=== PATIENT | female | born 1930 | race Caucasian/White ===

== ENCOUNTER 2018-08-27 13:50 | Observation (INO) ==
[2018-08-27 15:13] LABS: Basophils % 0.7 % (0.0-0.8); Eosinophils # 0.3 10*3/uL (0.0-0.87); Eosinophils % 4.3 % (0.00-10.9); Hemoglobin 11.5 GM/DL (12.0-16.0); Immature Granulocytes % 1.2 %; Immature Granulocytes Absolute 0.07 #; Lymphocytes # 1.5 10*3/uL (1.4-4.0); Lymphocytes % 24.5 % (21.3-54.2); Mean Corpuscular HGB Conc 32.9 GM/DL (32-36); Mean Corpuscular Hemoglobin 27 PG (27-34); Mean Corpuscular Volume 83.1 FL (87-102); Mean Platelet Volume 10.9 FL (9.6-12.0); Monocytes # 0.7 10*3/uL (0.11-0.8); Monocytes % 12.3 % (1.7-12.7); Neutrophils # 3.4 10*3/uL (1.4-7.4); Platelet Count 240 T/CUMM (130-400); Red Blood Count 4.21 MC/CUMM (3.8-5.5); Red Cell Distribution Width 13.2 % (9.3-17.3)
[2018-08-27 15:25] LABS: PT Patient Result 10.9 SECS; Partial Thromboplastin Time 28.9 SECS (0-40)
[2018-08-27 15:30] LABS: Alanine Aminotransferase 32 U/L (13-56); Albumin 3.4 G/DL (3.4-5.0); Alkaline Phosphatase 75 U/L (45-117); Aspartate Amino Transferase 42 U/L (0-37); Blood Urea Nitrogen 4 MG/DL (7-18); Calcium 8.8 MG/DL (8.5-10.1); Glucose 98 MG/DL (74-106); Osmolality,Calculated 271.7 MOS/KG (273-304); Sodium 138 MMOL/L (136-145); Troponin I < 0.015 NG/ML (0.00-0.045)
[2018-08-27] MEDS ORDERED: POTASSIUM CHLORIDE 20 MEQ TABLET PO STA (16:25)
[2018-08-27 17:08] LABS: Apearance,Urine CLEAR (Clear); Bilirubin,Urine Negative (Negative); Blood, Urine Negative (Negative); Glucose,Urine (UA) Negative (Negative); Ketones,Urine Negative (Negative); Nitrite,Urine Negative (Negative); Protein,Urine Negative; RBC,Urine 3 /HPF (0-4); Urine Color Yellow (Yellow); Urine Specific Gravity 1.005 (1.001-1.035); Urine Urobilinogen < 2.0 EU/DL (0.2-1.0); WBC,Urine 17 /HPF (0-6)
[2018-08-27] MEDS ORDERED: cefTRIAXone 1,000 MG in SODIUM CHLORIDE 0.9% 100 ML IV STA (17:11)
[2018-08-27] MEDS ORDERED: LEVOFLOXACIN 500 MG TABLET PO STA (17:22)
[2018-08-27] MEDS ORDERED: ONDANSETRON 4 MG/2 ML VIAL IV PRN (17:44)
[2018-08-27] MEDS ORDERED: ACETAMINOPHEN 325 MG TABLET PO PRN (17:44)
[2018-08-27] MEDS: SODIUM CHLORIDE 0.9% 1,000 ML IV SCH ×2 (18:29→21:17)
[2018-08-27] MEDS ORDERED: LEVOFLOXACIN INJ 500 MG in PREMIX 1 EACH IV SCH (18:30)
[2018-08-27] MEDS ORDERED: ASPIRIN 325 MG TABLET PO STA (18:36)
[2018-08-27 18:48] LABS: Risk Ratio 6.06; Thyroid Stimulating Hormone 3.76 uIU/ml (0.358-3.74); VLDL CHOLESTEROL 41.4 MG/DL
[2018-08-27] MEDS ORDERED: DICLOFENAC 1% GEL 100 GM TUBE TOP PRN (19:13)
[2018-08-27 19:17] LABS: Band Neutrophils 1 % (0-10); Eosinophils 5 % (0-10); Lymphocytes 24 % (20-55); Myelocytes 1 %; Segmented Neutrophils 62 % (50-85); Total Cells Counted 100
[2018-08-27 19:18] LABS: Anisocytosis Slight; Hypochromasia 1+; Microcytosis 1+
[2018-08-27 19:19] LABS: Ovalocytes Slight
[2018-08-27 19:20] LABS: Platelet Estimate Normal
[2018-08-27] MEDS ORDERED: DENOSUMAB 60 MG/ML SYRINGE SUBCUT SCH (19:30)
[2018-08-27] MEDS ORDERED: ZALEPLON 5 MG CAPSULE PO SCH (21:00)
[2018-08-27] MEDS ORDERED: MIRTAZAPINE 15 MG TABLET PO SCH (21:00)
[2018-08-27] MEDS: PROPRANOLOL 20 MG TABLET PO SCH (21:14)
[2018-08-27] MEDS: risperiDONE 0.5 MG TABLET PO SCH (21:14)
[2018-08-27] MEDS: clonazePAM 0.5 MG TABLET PO SCH (21:15)
[2018-08-27] MEDS: OXYBUTYNIN 5 MG TABLET PO SCH (21:15)
[2018-08-28 04:44] LABS: Basophils % 0.4 % (0.0-0.8); Eosinophils # 0.2 10*3/uL (0.0-0.87); Eosinophils % 4.2 % (0.00-10.9); Hematocrit 31.7 VOL% (35.7-47.0); Hemoglobin 10.4 GM/DL (12.0-16.0); Immature Granulocytes % 1.3 %; Immature Granulocytes Absolute 0.06 #; Lymphocytes # 1.6 10*3/uL (1.4-4.0); Lymphocytes % 33.8 % (21.3-54.2); Mean Corpuscular HGB Conc 32.8 GM/DL (32-36); Mean Corpuscular Hemoglobin 27 PG (27-34); Mean Corpuscular Volume 83.6 FL (87-102); Mean Platelet Volume 11.2 FL (9.6-12.0); Monocytes # 0.6 10*3/uL (0.11-0.8); Monocytes % 13.3 % (1.7-12.7); Neutrophils # 2.2 10*3/uL (1.4-7.4); Platelet Count 208 T/CUMM (130-400); Red Blood Count 3.79 MC/CUMM (3.8-5.5); Red Cell Distribution Width 13.2 % (9.3-17.3); White Blood Count 4.7 T/CUMM (4-12)
[2018-08-28 05:19] LABS: Albumin 2.9 G/DL (3.4-5.0); Bilirubin,Total 0.5 MG/DL (0.2-1.0); Calcium 7.9 MG/DL (8.5-10.1); Osmolality,Calculated 278.1 MOS/KG (273-304); Potassium 3.1 MMOL/L (3.5-5.1); Total Protein 6.1 G/DL (6.4-8.3)
[2018-08-28 05:30] LABS: Eosinophils 1 % (0-10); Hypochromasia 1+; Lymphocytes 42 % (20-55); Microcytosis 1+; Platelet Estimate Adequate; Segmented Neutrophils 54 % (50-85); Total Cells Counted 100
[2018-08-28] MEDS: SODIUM CHLORIDE 0.9% 1,000 ML IV SCH (06:04)
[2018-08-28] MEDS ORDERED: LEVOTHYROXINE 75 MCG TABLET PO SCH (06:30)
[2018-08-28] MEDS ORDERED: buPROPion 100 MG TABLET PO SCH (08:00)
[2018-08-28] MEDS: PROPRANOLOL 20 MG TABLET PO SCH (08:35)
[2018-08-28] MEDS: risperiDONE 0.5 MG TABLET PO SCH (08:35)
[2018-08-28] MEDS: clonazePAM 0.5 MG TABLET PO SCH (08:35)
[2018-08-28] MEDS: OXYBUTYNIN 5 MG TABLET PO SCH (08:37)
[2018-08-28] MEDS ORDERED: PANTOPRAZOLE 40 MG TABLET PO SCH (09:00)
[2018-08-28] MEDS ORDERED: SERTRALINE 100 MG TABLET PO SCH (09:00)
[2018-08-28] MEDS ORDERED: ASPIRIN 325 MG TABLET PO SCH (09:00)
[2018-08-28] MEDS ORDERED: CALCIUM (CARBONATE) 600 MG TABLET PO SCH (09:00)
[2018-08-28] MEDS ORDERED: CYANOCOBALAMIN 500 MCG TABLET PO SCH (09:00)
[2018-08-28] MEDS ORDERED: OMEGA 3 ACID ETHYL ESTERS 1 GM CAPSULE PO SCH (09:00)
[2018-08-28] MEDS ORDERED: CHOLECALCIFEROL 1,000 UNIT TABLET PO SCH (09:00)
[2018-08-28 09:50] VITALS: BP 160/85
[2018-08-28] MEDS ORDERED: cefTRIAXone 1,000 MG in SYRINGE 1 EACH IV SCH (18:00)
[2018-08-28] MEDS ORDERED: DONEPEZIL 10 MG TABLET PO SCH (19:00)
[2018-08-28] MEDS ORDERED: ATORVASTATIN 40 MG TABLET PO SCH (21:00)
== END 2018-08-28 11:30 | disposition home or self-care (01) ==
LOC: N.ED 13:50 → N.EDINP 13:50 → SUATTDRO 17:44 → N.4E 19:18
PROVIDERS: ADMIT Hospitalist; ATTEND Internal Medicine

== ENCOUNTER 2018-10-24 14:54 | Observation (INO) ==
[2018-10-24 16:01] LABS: Basophils % 0.2 % (0.0-0.8); Eosinophils # 0.2 10*3/uL (0.0-0.87); Hematocrit 39.9 VOL% (35.7-47.0); Hemoglobin 13.3 GM/DL (12.0-16.0); Immature Granulocytes % 0.5 %; Immature Granulocytes Absolute 0.04 #; Lymphocytes # 1.5 10*3/uL (1.4-4.0); Lymphocytes % 17.4 % (21.3-54.2); Mean Corpuscular HGB Conc 33.3 GM/DL (32-36); Mean Corpuscular Hemoglobin 27 PG (27-34); Mean Corpuscular Volume 82.3 FL (87-102); Monocytes # 0.7 10*3/uL (0.11-0.8); Monocytes % 8.4 % (1.7-12.7); Neutrophils % 71.5 % (38.7-73.9); Platelet Count 270 T/CUMM (130-400); Red Blood Count 4.85 MC/CUMM (3.8-5.5); Red Cell Distribution Width 13.2 % (9.3-17.3); White Blood Count 8.4 T/CUMM (4-12)
[2018-10-24 16:33] LABS: Albumin 3.9 G/DL (3.4-5.0); Bilirubin,Total 0.9 MG/DL (0.2-1.0); Osmolality,Calculated 258.1 MOS/KG (273-304); Potassium 3.3 MMOL/L (3.5-5.1); Total Protein 7.8 G/DL (6.4-8.3)
[2018-10-24 16:58] LABS: Apearance,Urine CLEAR (Clear); Bacteria,Urine Occasional /HPF (Few); Bilirubin,Urine Negative (Negative); Blood, Urine Small mg/dL (Negative); Glucose,Urine (UA) Negative (Negative); Ketones,Urine 20 mg/dL (Negative); Mucus,Urine Occasional /LPF (Occasional); Nitrite,Urine Negative (Negative); Protein,Urine 30 MG/DL; RBC,Urine 1 /HPF (0-4); Urine Color Yellow (Yellow); Urine Specific Gravity 1.019 (1.001-1.035); Urine Urobilinogen < 2.0 EU/DL (0.2-1.0); WBC,Urine 1 /HPF (0-6)
[2018-10-24] MEDS ORDERED: DICLOFENAC 1% GEL 100 GM TUBE TOP PRN (17:28)
[2018-10-24] MEDS ORDERED: DENOSUMAB 60 MG/ML SYRINGE SUBCUT SCH (17:30)
[2018-10-24] MEDS ORDERED: clonazePAM 0.5 MG TABLET PO PRN (18:09)
[2018-10-24] MEDS ORDERED: ACETAMINOPHEN 325 MG TABLET PO PRN ×2 (18:25→18:31)
[2018-10-24] MEDS ORDERED: ONDANSETRON 4 MG/2 ML VIAL IV PRN ×2 (18:25→18:31)
[2018-10-24] MEDS ORDERED: ENOXAPARIN 40 MG/0.4 ML SYRINGE SUBCUT SCH (18:30)
[2018-10-24] MEDS ORDERED: ENOXAPARIN 30 MG/0.3 ML SYRINGE SUBCUT SCH (18:31)
[2018-10-24] MEDS: SODIUM CHLOR 0.9% KCL 20 MEQ 20 MEQ/1,000 ML BAG IV SCH (19:39)
[2018-10-24] MEDS: ATORVASTATIN 40 MG TABLET PO SCH (20:51)
[2018-10-24] MEDS: LACTOBACILLUS RHAMNOSUS GG CAPSULE PO SCH (20:51)
[2018-10-24] MEDS: DONEPEZIL 10 MG TABLET PO SCH (20:51)
[2018-10-24] MEDS: MIRTAZAPINE 15 MG TABLET PO SCH (20:51)
[2018-10-24] MEDS: PROPRANOLOL 20 MG TABLET PO SCH (20:51)
[2018-10-24] MEDS: OMEGA 3 ACID ETHYL ESTERS 1 GM CAPSULE PO SCH (20:51)
[2018-10-24] MEDS ORDERED: HALOPERIDOL 5 MG/ML AMP IM ONE (22:50)
[2018-10-25] MEDS: LACTOBACILLUS RHAMNOSUS GG CAPSULE PO SCH ×2 (00:36→10:00)
[2018-10-25] MEDS: DONEPEZIL 10 MG TABLET PO SCH (00:36)
[2018-10-25] MEDS: MIRTAZAPINE 15 MG TABLET PO SCH (00:37)
[2018-10-25] MEDS: OMEGA 3 ACID ETHYL ESTERS 1 GM CAPSULE PO SCH ×2 (00:37→10:00)
[2018-10-25] MEDS: ATORVASTATIN 40 MG TABLET PO SCH (00:37)
[2018-10-25] MEDS: PROPRANOLOL 20 MG TABLET PO SCH ×4 (00:37→15:10)
[2018-10-25 04:29] LABS: Basophils % 0.4 % (0.0-0.8); Eosinophils # 0.2 10*3/uL (0.0-0.87); Eosinophils % 2.7 % (0.00-10.9); Hematocrit 36.6 VOL% (35.7-47.0); Hemoglobin 12.2 GM/DL (12.0-16.0); Immature Granulocytes % 0.3 %; Immature Granulocytes Absolute 0.02 #; Lymphocytes # 1.8 10*3/uL (1.4-4.0); Lymphocytes % 23.9 % (21.3-54.2); Mean Corpuscular HGB Conc 33.3 GM/DL (32-36); Mean Corpuscular Hemoglobin 28 PG (27-34); Mean Corpuscular Volume 82.8 FL (87-102); Mean Platelet Volume 10.6 FL (9.6-12.0); Monocytes # 0.7 10*3/uL (0.11-0.8); Monocytes % 9.9 % (1.7-12.7); Neutrophils # 4.6 10*3/uL (1.4-7.4); Neutrophils % 62.8 % (38.7-73.9); Platelet Count 242 T/CUMM (130-400); Red Blood Count 4.42 MC/CUMM (3.8-5.5); Red Cell Distribution Width 13.3 % (9.3-17.3); White Blood Count 7.4 T/CUMM (4-12)
[2018-10-25 05:03] LABS: Albumin 3.5 G/DL (3.4-5.0); Bilirubin,Total 0.7 MG/DL (0.2-1.0); Calcium 8.3 MG/DL (8.5-10.1); Osmolality,Calculated 262.5 MOS/KG (273-304); Potassium 3.1 MMOL/L (3.5-5.1); Total Protein 6.7 G/DL (6.4-8.3)
[2018-10-25] MEDS ORDERED: LEVOTHYROXINE 75 MCG TABLET PO SCH (06:30)
[2018-10-25] MEDS: SODIUM CHLOR 0.9% KCL 20 MEQ 20 MEQ/1,000 ML BAG IV SCH (08:17)
[2018-10-25] MEDS ORDERED: CALCIUM (CARBONATE) 600 MG TABLET PO SCH (09:00)
[2018-10-25] MEDS ORDERED: CHOLECALCIFEROL 1,000 UNIT TABLET PO SCH (09:00)
[2018-10-25] MEDS ORDERED: PANTOPRAZOLE 40 MG TABLET PO SCH (09:00)
[2018-10-25] MEDS: ASPIRIN 325 MG TABLET PO SCH ×2 (10:00→11:40)
[2018-10-25] MEDS: CYANOCOBALAMIN 500 MCG TABLET PO SCH ×2 (10:01→11:40)
[2018-10-25 11:37] VITALS: BP 178/84
== END 2018-10-25 15:51 | disposition home health service (06) ==
LOC: N.ED 14:54 → N.EDINP 14:54 → SUATTDRO 17:27 → N.5E 18:23
PROVIDERS: ADMIT Internal Medicine; ATTEND Internal Medicine

== ENCOUNTER 2019-07-26 12:24 | Inpatient (IN) ==
[2019-07-26 13:00] LABS: Basophils % 0.3 % (0.0-0.8); Eosinophils # 0.1 10*3/uL (0.0-0.87); Hemoglobin 13.3 GM/DL (12.0-16.0); Immature Granulocytes % 0.3 %; Immature Granulocytes Absolute 0.02 #; Lymphocytes # 1.2 10*3/uL (1.4-4.0); Lymphocytes % 20.6 % (21.3-54.2); Mean Corpuscular Volume 78.8 FL (87-102); Mean Platelet Volume 10.5 FL (9.6-12.0); Monocytes % 10.8 % (1.7-12.7); Platelet Count 234 T/CUMM (130-400); Red Blood Count 4.82 MC/CUMM (3.8-5.5)
[2019-07-26 13:14] LABS: Albumin 3.8 G/DL (3.4-5.0); Bilirubin,Total 0.6 MG/DL (0.2-1.0); Calcium 8.4 MG/DL (8.5-10.1); Osmolality,Calculated 244.9 MOS/KG (273-304); Total Protein 6.8 G/DL (6.4-8.3)
[2019-07-26 13:34] LABS: Apearance,Urine CLEAR (Clear); Bilirubin,Urine Negative (Negative); Blood, Urine Small mg/dL (Negative); Glucose,Urine (UA) Negative (Negative); Hyaline Casts,Urine 1 /LPF (0-3); Ketones,Urine 20 mg/dL (Negative); Mucus,Urine Occasional /LPF (Occasional); Nitrite,Urine Negative (Negative); Protein,Urine Negative; RBC,Urine 2 /HPF (0-4); Urine Color Yellow (Yellow); Urine Specific Gravity 1.013 (1.001-1.035); Urine Urobilinogen < 2.0 EU/DL (0.2-1.0); WBC,Urine 1 /HPF (0-6)
[2019-07-26] MEDS ORDERED: hydrALAZINE 20 MG/1 ML VIAL ONE (13:54)
[2019-07-26] MEDS ORDERED: hydrALAZINE 20 MG/1 ML VIAL IV STA (14:02)
[2019-07-26] MEDS: ENOXAPARIN 30 MG/0.3 ML SYRINGE SUBCUT SCH ×2 (14:58→15:35)
[2019-07-26 15:58] LABS: Thyroid Stimulating Hormone 5.68 uIU/ml (0.358-3.74)
[2019-07-26] MEDS: ACETAMINOPHEN 325 MG TABLET PO PRN ×2 (16:51→22:12)
[2019-07-26] MEDS: PROPRANOLOL 20 MG TABLET PO SCH ×2 (16:51→22:12)
[2019-07-26] MEDS: SODIUM CHLORIDE 0.9% 1,000 ML IV SCH (16:54)
[2019-07-26] MEDS ORDERED: DONEPEZIL 10 MG TABLET PO SCH (21:00)
[2019-07-26] MEDS: DOCUSATE SODIUM 100 MG CAPSULE PO SCH (22:12)
[2019-07-27] MEDS: SODIUM CHLORIDE 0.9% 1,000 ML IV SCH (02:23)
[2019-07-27 05:49] LABS: Basophils % 0.5 % (0.0-0.8); Eosinophils # 0.2 10*3/uL (0.0-0.87); Eosinophils % 2.5 % (0.00-10.9); Hematocrit 35.4 VOL% (35.7-47.0); Hemoglobin 12.5 GM/DL (12.0-16.0); Immature Granulocytes % 0.5 %; Immature Granulocytes Absolute 0.03 #; Lymphocytes # 0.9 10*3/uL (1.4-4.0); Mean Corpuscular HGB Conc 35.3 GM/DL (32-36); Mean Corpuscular Volume 78.7 FL (87-102); Mean Platelet Volume 10.6 FL (9.6-12.0); Monocytes % 10.4 % (1.7-12.7); Neutrophils % 71.1 % (38.7-73.9); Platelet Count 202 T/CUMM (130-400); Red Cell Distribution Width 12.9 % (9.3-17.3)
[2019-07-27 06:17] LABS: Calcium 7.6 MG/DL (8.5-10.1); Osmolality,Calculated 247.6 MOS/KG (273-304)
[2019-07-27] MEDS: PROPRANOLOL 20 MG TABLET PO SCH ×3 (08:07→20:10)
[2019-07-27] MEDS: SERTRALINE 100 MG TABLET PO SCH (08:07)
[2019-07-27] MEDS: DOCUSATE SODIUM 100 MG CAPSULE PO SCH ×2 (08:08→20:10)
[2019-07-27] MEDS: LEVOTHYROXINE 75 MCG TABLET PO SCH (08:08)
[2019-07-27] MEDS: PANTOPRAZOLE 40 MG TABLET PO SCH (08:08)
[2019-07-27] MEDS ORDERED: MAGNESIUM SULF RIDER 2 GM in PREMIX 1 EACH IV PRN (09:57)
[2019-07-27] MEDS ORDERED: MAGNESIUM SULF RIDER 4 GM in PREMIX 1 EACH IV PRN (09:57)
[2019-07-27] MEDS: POTASSIUM CHLORIDE 20 MEQ TABLET PO PRN ×2 (10:16→16:33)
[2019-07-27] MEDS ORDERED: POTASSIUM CHLORIDE 20 MEQ TABLET PO ONE (10:37)
[2019-07-27] MEDS: OXYBUTYNIN 5 MG TABLET PO SCH (11:41)
[2019-07-27] MEDS: ASPIRIN 325 MG TABLET PO SCH (11:41)
[2019-07-27] MEDS: LISINOPRIL 10 MG TABLET PO SCH ×2 (11:42→11:56)
[2019-07-27] MEDS: MAGNESIUM CHLORIDE 64 MG TABLET PO SCH (11:42)
[2019-07-27] MEDS: clonazePAM 0.5 MG TABLET PO PRN ×2 (11:56→20:10)
[2019-07-27] MEDS: METHOCARBAMOL 500 MG TABLET PO PRN (11:56)
[2019-07-27] MEDS ORDERED: LABETALOL 20 MG/4 ML SYRINGE IV ONE (16:29)
[2019-07-27] MEDS: ENOXAPARIN 30 MG/0.3 ML SYRINGE SUBCUT SCH (16:32)
[2019-07-27] MEDS: ACETAMINOPHEN 325 MG TABLET PO PRN (20:10)
[2019-07-27] MEDS: hydrALAZINE 25 MG TABLET PO SCH (20:10)
[2019-07-27] MEDS: SODIUM CHLORIDE 1 GM TABLET PO SCH (20:10)
[2019-07-27] MEDS: ONDANSETRON 4 MG/2 ML VIAL IV PRN (22:30)
[2019-07-28 06:13] LABS: Basophils % 0.3 % (0.0-0.8); Eosinophils # 0.1 10*3/uL (0.0-0.87); Eosinophils % 1.3 % (0.00-10.9); Hematocrit 39.9 VOL% (35.7-47.0); Hemoglobin 14.2 GM/DL (12.0-16.0); Immature Granulocytes % 0.4 %; Immature Granulocytes Absolute 0.04 #; Lymphocytes # 1.6 10*3/uL (1.4-4.0); Lymphocytes % 17.7 % (21.3-54.2); Mean Corpuscular HGB Conc 35.6 GM/DL (32-36); Mean Corpuscular Volume 78.7 FL (87-102); Mean Platelet Volume 10.5 FL (9.6-12.0); Monocytes % 12.1 % (1.7-12.7); Neutrophils % 68.2 % (38.7-73.9); Platelet Count 327 T/CUMM (130-400); Red Blood Count 5.07 MC/CUMM (3.8-5.5); White Blood Count 8.9 T/CUMM (4-12)
[2019-07-28] MEDS: clonazePAM 0.5 MG TABLET PO PRN ×2 (06:19→17:12)
[2019-07-28] MEDS: METHOCARBAMOL 500 MG TABLET PO PRN (06:20)
[2019-07-28 06:44] LABS: Calcium 8.5 MG/DL (8.5-10.1); Osmolality,Calculated 244.9 MOS/KG (273-304)
[2019-07-28 06:50] LABS: % Iron Saturation 15.3 % (18-50); Ferritin 188.3 ng/ml (8-252)
[2019-07-28 06:56] LABS: Folate 14.5 NG/ML (5.4-24.0); Vitamin B12 > 2000 PG/ML (211-911)
[2019-07-28] MEDS ORDERED: POTASSIUM CHLORIDE 20 MEQ TABLET PO SCH (09:00)
[2019-07-28] MEDS: SODIUM CHLORIDE 1 GM TABLET PO SCH ×2 (09:11→20:31)
[2019-07-28] MEDS: LEVOTHYROXINE 75 MCG TABLET PO SCH (09:13)
[2019-07-28 10:16] LABS: Sedimentation Rate-Westergren 11 MM/HR (0-30)
[2019-07-28] MEDS: SERTRALINE 100 MG TABLET PO SCH (11:45)
[2019-07-28] MEDS: POTASSIUM CHLORIDE 20 MEQ TABLET PO PRN ×2 (11:45→16:11)
[2019-07-28] MEDS: OXYBUTYNIN 5 MG TABLET PO SCH (11:46)
[2019-07-28] MEDS: hydrALAZINE 25 MG TABLET PO SCH ×2 (11:46→20:31)
[2019-07-28] MEDS: PANTOPRAZOLE 40 MG TABLET PO SCH (11:46)
[2019-07-28] MEDS: CHOLECALCIFEROL 1,000 UNIT TABLET PO SCH (11:46)
[2019-07-28] MEDS: PROPRANOLOL 20 MG TABLET PO SCH ×3 (11:46→20:31)
[2019-07-28] MEDS: DOCUSATE SODIUM 100 MG CAPSULE PO SCH ×2 (11:46→20:31)
[2019-07-28] MEDS: MAGNESIUM CHLORIDE 64 MG TABLET PO SCH (11:46)
[2019-07-28] MEDS: ASPIRIN 325 MG TABLET PO SCH (11:48)
[2019-07-28] MEDS: LISINOPRIL 10 MG TABLET PO SCH (11:50)
[2019-07-28] MEDS: ENOXAPARIN 30 MG/0.3 ML SYRINGE SUBCUT SCH (15:02)
[2019-07-28] MEDS: ACETAMINOPHEN 325 MG TABLET PO PRN (20:31)
[2019-07-28] MEDS: POTASSIUM CHLORIDE 20 MEQ TABLET PO SCH (20:31)
[2019-07-29 05:20] LABS: Basophils % 0.5 % (0.0-0.8); Eosinophils # 0.1 10*3/uL (0.0-0.87); Eosinophils % 1.4 % (0.00-10.9); Hematocrit 34.9 VOL% (35.7-47.0); Hemoglobin 12.3 GM/DL (12.0-16.0); Immature Granulocytes % 0.5 %; Immature Granulocytes Absolute 0.04 #; Lymphocytes # 2.1 10*3/uL (1.4-4.0); Lymphocytes % 27.3 % (21.3-54.2); Mean Corpuscular HGB Conc 35.2 GM/DL (32-36); Mean Corpuscular Volume 78.6 FL (87-102); Monocytes % 12.7 % (1.7-12.7); Neutrophils % 57.6 % (38.7-73.9); Platelet Count 260 T/CUMM (130-400); Red Blood Count 4.44 MC/CUMM (3.8-5.5); Red Cell Distribution Width 13.2 % (9.3-17.3); White Blood Count 7.6 T/CUMM (4-12)
[2019-07-29 05:36] LABS: Calcium 8.4 MG/DL (8.5-10.1); Osmolality,Calculated 254.4 MOS/KG (273-304)
[2019-07-29] MEDS: LEVOTHYROXINE 75 MCG TABLET PO SCH (06:02)
[2019-07-29 09:36] LABS: Hemoglobin A1 (Alkaline) 97.5 % (96.5-98.5); Hemoglobin A2 (Alkaline) 2.5 % (1.5-3.5)
[2019-07-29] MEDS: METHOCARBAMOL 500 MG TABLET PO PRN ×2 (09:40→18:52)
[2019-07-29] MEDS: LISINOPRIL 20 MG TABLET PO SCH (09:40)
[2019-07-29] MEDS: DOCUSATE SODIUM 100 MG CAPSULE PO SCH ×2 (09:40→20:41)
[2019-07-29] MEDS: PROPRANOLOL 20 MG TABLET PO SCH ×3 (09:41→20:41)
[2019-07-29] MEDS: SERTRALINE 100 MG TABLET PO SCH (09:41)
[2019-07-29] MEDS: ASPIRIN 325 MG TABLET PO SCH (09:41)
[2019-07-29] MEDS: hydrALAZINE 25 MG TABLET PO SCH ×2 (09:42→20:41)
[2019-07-29] MEDS: MAGNESIUM CHLORIDE 64 MG TABLET PO SCH (09:42)
[2019-07-29] MEDS: PANTOPRAZOLE 40 MG TABLET PO SCH (09:43)
[2019-07-29] MEDS: CHOLECALCIFEROL 1,000 UNIT TABLET PO SCH (09:43)
[2019-07-29] MEDS: SODIUM CHLORIDE 1 GM TABLET PO SCH ×2 (09:43→20:41)
[2019-07-29] MEDS: OXYBUTYNIN 5 MG TABLET PO SCH (09:43)
[2019-07-29] MEDS: POTASSIUM CHLORIDE 20 MEQ TABLET PO SCH (09:44)
[2019-07-29] MEDS: MEMANTINE 5 MG TABLET PO SCH ×2 (12:16→20:42)
[2019-07-29] MEDS: ENOXAPARIN 30 MG/0.3 ML SYRINGE SUBCUT SCH (15:24)
[2019-07-29] MEDS: ACETAMINOPHEN 325 MG TABLET PO PRN ×2 (15:24→20:41)
[2019-07-29] MEDS: clonazePAM 0.5 MG TABLET PO PRN (18:52)
[2019-07-29] MEDS: QUEtiapine 25 MG TABLET PO SCH (20:41)
[2019-07-30] MEDS: clonazePAM 0.5 MG TABLET PO PRN ×3 (06:14→20:51)
[2019-07-30] MEDS: LEVOTHYROXINE 75 MCG TABLET PO SCH (06:14)
[2019-07-30] MEDS: DOCUSATE SODIUM 100 MG CAPSULE PO SCH ×3 (09:31→20:53)
[2019-07-30] MEDS: POTASSIUM CHLORIDE 20 MEQ TABLET PO SCH (09:31)
[2019-07-30] MEDS: PANTOPRAZOLE 40 MG TABLET PO SCH (09:31)
[2019-07-30] MEDS: ASPIRIN 325 MG TABLET PO SCH (09:32)
[2019-07-30] MEDS: PROPRANOLOL 20 MG TABLET PO SCH ×3 (09:32→20:44)
[2019-07-30] MEDS: OXYBUTYNIN 5 MG TABLET PO SCH (09:33)
[2019-07-30] MEDS: LISINOPRIL 20 MG TABLET PO SCH (09:33)
[2019-07-30] MEDS: hydrALAZINE 25 MG TABLET PO SCH ×2 (09:33→20:44)
[2019-07-30] MEDS: MEMANTINE 5 MG TABLET PO SCH ×2 (09:33→20:44)
[2019-07-30] MEDS: MAGNESIUM CHLORIDE 64 MG TABLET PO SCH (09:33)
[2019-07-30] MEDS: SERTRALINE 100 MG TABLET PO SCH (09:35)
[2019-07-30] MEDS: METHOCARBAMOL 500 MG TABLET PO PRN ×3 (09:35→20:44)
[2019-07-30] MEDS: SODIUM CHLORIDE 1 GM TABLET PO SCH ×2 (09:35→20:45)
[2019-07-30] MEDS: CHOLECALCIFEROL 1,000 UNIT TABLET PO SCH (09:35)
[2019-07-30 09:54] LABS: Calcium 8.7 MG/DL (8.5-10.1); Osmolality,Calculated 250.5 MOS/KG (273-304)
[2019-07-30] MEDS: ENOXAPARIN 30 MG/0.3 ML SYRINGE SUBCUT SCH (16:15)
[2019-07-30] MEDS: QUEtiapine 25 MG TABLET PO SCH (20:44)
[2019-07-31] MEDS ORDERED: LORazepam 2 MG/1 ML VIAL IV ONE (00:10)
[2019-07-31] MEDS: METHOCARBAMOL 500 MG TABLET PO PRN ×2 (03:26→20:05)
[2019-07-31] MEDS: clonazePAM 0.5 MG TABLET PO PRN ×3 (03:26→17:13)
[2019-07-31] MEDS: LEVOTHYROXINE 75 MCG TABLET PO SCH (06:22)
[2019-07-31 07:19] LABS: Calcium 8.5 MG/DL (8.5-10.1); Osmolality,Calculated 255.1 MOS/KG (273-304)
[2019-07-31] MEDS: hydrALAZINE 25 MG TABLET PO SCH ×2 (09:15→20:05)
[2019-07-31] MEDS: POTASSIUM CHLORIDE 20 MEQ TABLET PO SCH (09:15)
[2019-07-31] MEDS: ASPIRIN 325 MG TABLET PO SCH (09:15)
[2019-07-31] MEDS: MAGNESIUM CHLORIDE 64 MG TABLET PO SCH (09:15)
[2019-07-31] MEDS: SODIUM CHLORIDE 1 GM TABLET PO SCH ×2 (09:15→20:04)
[2019-07-31] MEDS: PROPRANOLOL 20 MG TABLET PO SCH ×3 (09:16→20:04)
[2019-07-31] MEDS: MEMANTINE 5 MG TABLET PO SCH ×2 (09:16→20:05)
[2019-07-31] MEDS: CHOLECALCIFEROL 1,000 UNIT TABLET PO SCH (09:16)
[2019-07-31] MEDS: SERTRALINE 100 MG TABLET PO SCH (09:16)
[2019-07-31] MEDS: DOCUSATE SODIUM 100 MG CAPSULE PO SCH ×2 (09:16→20:05)
[2019-07-31] MEDS: OXYBUTYNIN 5 MG TABLET PO SCH (09:16)
[2019-07-31] MEDS: PANTOPRAZOLE 40 MG TABLET PO SCH (09:16)
[2019-07-31] MEDS: LISINOPRIL 20 MG TABLET PO SCH (09:16)
[2019-07-31] MEDS ORDERED: LISINOPRIL 5 MG TABLET PO ONE (10:30)
[2019-07-31] MEDS: ENOXAPARIN 30 MG/0.3 ML SYRINGE SUBCUT SCH (14:20)
[2019-07-31] MEDS: QUEtiapine 25 MG TABLET PO SCH (20:05)
[2019-08-01 05:49] LABS: Osmolality,Calculated 255.1 MOS/KG (273-304)
[2019-08-01] MEDS: LEVOTHYROXINE 75 MCG TABLET PO SCH (06:47)
[2019-08-01] MEDS ORDERED: LISINOPRIL 10 MG TABLET PO SCH (09:00)
[2019-08-01] MEDS: SODIUM CHLORIDE 1 GM TABLET PO SCH ×2 (09:27→20:55)
[2019-08-01] MEDS: PROPRANOLOL 20 MG TABLET PO SCH ×3 (09:27→20:56)
[2019-08-01] MEDS: PANTOPRAZOLE 40 MG TABLET PO SCH (09:28)
[2019-08-01] MEDS: POTASSIUM CHLORIDE 20 MEQ TABLET PO SCH (09:28)
[2019-08-01] MEDS: CHOLECALCIFEROL 1,000 UNIT TABLET PO SCH (09:28)
[2019-08-01] MEDS: OXYBUTYNIN 5 MG TABLET PO SCH (09:28)
[2019-08-01] MEDS: SERTRALINE 100 MG TABLET PO SCH (09:28)
[2019-08-01] MEDS: ASPIRIN 325 MG TABLET PO SCH (09:28)
[2019-08-01] MEDS: MEMANTINE 5 MG TABLET PO SCH ×2 (09:28→20:55)
[2019-08-01] MEDS: DOCUSATE SODIUM 100 MG CAPSULE PO SCH ×2 (09:29→20:55)
[2019-08-01] MEDS: hydrALAZINE 25 MG TABLET PO SCH ×3 (09:29→21:38)
[2019-08-01] MEDS: MAGNESIUM CHLORIDE 64 MG TABLET PO SCH (09:29)
[2019-08-01] MEDS: METHOCARBAMOL 500 MG TABLET PO PRN ×2 (13:36→20:54)
[2019-08-01] MEDS: clonazePAM 0.5 MG TABLET PO PRN ×2 (13:36→20:56)
[2019-08-01] MEDS: ENOXAPARIN 30 MG/0.3 ML SYRINGE SUBCUT SCH (16:12)
[2019-08-01] MEDS: ACETAMINOPHEN 325 MG TABLET PO PRN (16:13)
[2019-08-01] MEDS: QUEtiapine 25 MG TABLET PO SCH (20:56)
[2019-08-02] MEDS: METHOCARBAMOL 500 MG TABLET PO PRN (04:07)
[2019-08-02 06:11] LABS: Basophils % 0.5 % (0.0-0.8); Eosinophils # 0.1 10*3/uL (0.0-0.87); Eosinophils % 1.7 % (0.00-10.9); Hematocrit 33.2 VOL% (35.7-47.0); Hemoglobin 11.4 GM/DL (12.0-16.0); Immature Granulocytes % 0.3 %; Immature Granulocytes Absolute 0.02 #; Lymphocytes # 2.2 10*3/uL (1.4-4.0); Lymphocytes % 32.4 % (21.3-54.2); Mean Corpuscular HGB Conc 34.3 GM/DL (32-36); Monocytes % 11.1 % (1.7-12.7); Platelet Count 253 T/CUMM (130-400); Red Cell Distribution Width 13.4 % (9.3-17.3); White Blood Count 6.6 T/CUMM (4-12)
[2019-08-02 06:32] LABS: Calcium 8.7 MG/DL (8.5-10.1); Osmolality,Calculated 258.9 MOS/KG (273-304)
[2019-08-02] MEDS: LEVOTHYROXINE 75 MCG TABLET PO SCH (06:32)
[2019-08-02] MEDS: clonazePAM 0.5 MG TABLET PO PRN (06:58)
[2019-08-02] MEDS: CHOLECALCIFEROL 1,000 UNIT TABLET PO SCH (09:04)
[2019-08-02] MEDS: SERTRALINE 100 MG TABLET PO SCH (09:04)
[2019-08-02] MEDS: MAGNESIUM CHLORIDE 64 MG TABLET PO SCH (09:04)
[2019-08-02] MEDS: ASPIRIN 325 MG TABLET PO SCH (09:04)
[2019-08-02] MEDS: DOCUSATE SODIUM 100 MG CAPSULE PO SCH ×2 (09:04→21:05)
[2019-08-02] MEDS: PROPRANOLOL 20 MG TABLET PO SCH ×3 (09:04→21:05)
[2019-08-02] MEDS: SODIUM CHLORIDE 1 GM TABLET PO SCH ×2 (09:04→21:05)
[2019-08-02] MEDS: MEMANTINE 5 MG TABLET PO SCH ×2 (09:04→21:05)
[2019-08-02] MEDS: LISINOPRIL 20 MG TABLET PO SCH (09:05)
[2019-08-02] MEDS: PANTOPRAZOLE 40 MG TABLET PO SCH (09:05)
[2019-08-02] MEDS: OXYBUTYNIN 5 MG TABLET PO SCH (09:05)
[2019-08-02] MEDS: hydrALAZINE 25 MG TABLET PO SCH ×2 (09:05→21:05)
[2019-08-02] MEDS: POTASSIUM CHLORIDE 20 MEQ TABLET PO SCH (09:05)
[2019-08-02] MEDS: ACETAMINOPHEN 325 MG TABLET PO PRN ×2 (14:28→21:05)
[2019-08-02] MEDS: ENOXAPARIN 30 MG/0.3 ML SYRINGE SUBCUT SCH (14:29)
[2019-08-03 05:39] LABS: Calcium 8.5 MG/DL (8.5-10.1); Osmolality,Calculated 263.5 MOS/KG (273-304)
[2019-08-03] MEDS: LEVOTHYROXINE 75 MCG TABLET PO SCH (06:09)
[2019-08-03] MEDS: POTASSIUM CHLORIDE 20 MEQ TABLET PO SCH (08:37)
[2019-08-03] MEDS: hydrALAZINE 25 MG TABLET PO SCH ×2 (08:37→20:57)
[2019-08-03] MEDS: CHOLECALCIFEROL 1,000 UNIT TABLET PO SCH (08:37)
[2019-08-03] MEDS: PROPRANOLOL 20 MG TABLET PO SCH ×3 (08:37→20:57)
[2019-08-03] MEDS: DOCUSATE SODIUM 100 MG CAPSULE PO SCH ×2 (08:37→22:54)
[2019-08-03] MEDS: LISINOPRIL 20 MG TABLET PO SCH (08:37)
[2019-08-03] MEDS: MEMANTINE 5 MG TABLET PO SCH ×2 (08:38→20:57)
[2019-08-03] MEDS: MAGNESIUM CHLORIDE 64 MG TABLET PO SCH (08:38)
[2019-08-03] MEDS: SODIUM CHLORIDE 1 GM TABLET PO SCH ×2 (08:38→20:57)
[2019-08-03] MEDS: SERTRALINE 100 MG TABLET PO SCH (08:38)
[2019-08-03] MEDS: PANTOPRAZOLE 40 MG TABLET PO SCH (08:38)
[2019-08-03] MEDS: ASPIRIN 325 MG TABLET PO SCH (08:38)
[2019-08-03] MEDS: ACETAMINOPHEN 325 MG TABLET PO PRN ×2 (13:52→20:57)
[2019-08-03] MEDS: ONDANSETRON 4 MG/2 ML VIAL IV PRN (13:54)
[2019-08-03] MEDS: ENOXAPARIN 30 MG/0.3 ML SYRINGE SUBCUT SCH (14:25)
[2019-08-03] MEDS: METHOCARBAMOL 500 MG TABLET PO PRN ×2 (18:12→22:53)
[2019-08-04 05:47] LABS: Calcium 8.7 MG/DL (8.5-10.1); Osmolality,Calculated 257.1 MOS/KG (273-304)
[2019-08-04] MEDS: METHOCARBAMOL 500 MG TABLET PO PRN ×4 (06:36→21:03)
[2019-08-04] MEDS: ACETAMINOPHEN 325 MG TABLET PO PRN ×2 (06:36→21:03)
[2019-08-04] MEDS: LEVOTHYROXINE 75 MCG TABLET PO SCH (06:36)
[2019-08-04] MEDS: SODIUM CHLORIDE 1 GM TABLET PO SCH ×2 (09:03→21:03)
[2019-08-04] MEDS: POTASSIUM CHLORIDE 20 MEQ TABLET PO SCH (09:03)
[2019-08-04] MEDS: PROPRANOLOL 20 MG TABLET PO SCH ×3 (09:03→21:17)
[2019-08-04] MEDS: hydrALAZINE 25 MG TABLET PO SCH ×2 (09:03→21:04)
[2019-08-04] MEDS: DOCUSATE SODIUM 100 MG CAPSULE PO SCH ×2 (09:03→21:03)
[2019-08-04] MEDS: ASPIRIN 325 MG TABLET PO SCH (09:03)
[2019-08-04] MEDS: MAGNESIUM CHLORIDE 64 MG TABLET PO SCH (09:03)
[2019-08-04] MEDS: SERTRALINE 100 MG TABLET PO SCH (09:03)
[2019-08-04] MEDS: CHOLECALCIFEROL 1,000 UNIT TABLET PO SCH (09:03)
[2019-08-04] MEDS: LISINOPRIL 20 MG TABLET PO SCH (09:03)
[2019-08-04] MEDS: MEMANTINE 5 MG TABLET PO SCH ×2 (09:04→21:04)
[2019-08-04] MEDS: PANTOPRAZOLE 40 MG TABLET PO SCH (09:04)
[2019-08-04] MEDS: ENOXAPARIN 30 MG/0.3 ML SYRINGE SUBCUT SCH (13:59)
[2019-08-04] MEDS: POTASSIUM CHLORIDE 20 MEQ TABLET PO PRN (16:30)
[2019-08-05 05:37] LABS: Basophils % 0.4 % (0.0-0.8); Eosinophils # 0.1 10*3/uL (0.0-0.87); Eosinophils % 1.2 % (0.00-10.9); Hematocrit 33.3 VOL% (35.7-47.0); Hemoglobin 11.5 GM/DL (12.0-16.0); Immature Granulocytes % 0.4 %; Immature Granulocytes Absolute 0.03 #; Lymphocytes # 1.5 10*3/uL (1.4-4.0); Lymphocytes % 22.6 % (21.3-54.2); Mean Corpuscular HGB Conc 34.5 GM/DL (32-36); Mean Corpuscular Volume 80.4 FL (87-102); Monocytes % 11.8 % (1.7-12.7); Neutrophils % 63.6 % (38.7-73.9); Platelet Count 262 T/CUMM (130-400); Red Blood Count 4.14 MC/CUMM (3.8-5.5); Red Cell Distribution Width 13.2 % (9.3-17.3); White Blood Count 6.8 T/CUMM (4-12)
[2019-08-05 05:49] LABS: Calcium 8.4 MG/DL (8.5-10.1); Osmolality,Calculated 256.9 MOS/KG (273-304)
[2019-08-05] MEDS ORDERED: LEVOTHYROXINE 100 MCG TABLET PO SCH (06:30)
[2019-08-05] MEDS ORDERED: SERTRALINE 100 MG TABLET PO SCH (09:00)
[2019-08-05] MEDS: SODIUM CHLORIDE 1 GM TABLET PO SCH (09:28)
[2019-08-05] MEDS: LISINOPRIL 20 MG TABLET PO SCH (09:28)
[2019-08-05] MEDS: PROPRANOLOL 20 MG TABLET PO SCH (09:29)
[2019-08-05] MEDS: POTASSIUM CHLORIDE 20 MEQ TABLET PO SCH (09:29)
[2019-08-05] MEDS: DOCUSATE SODIUM 100 MG CAPSULE PO SCH (09:29)
[2019-08-05] MEDS: PANTOPRAZOLE 40 MG TABLET PO SCH (09:29)
[2019-08-05] MEDS: hydrALAZINE 25 MG TABLET PO SCH (09:29)
[2019-08-05] MEDS: ASPIRIN 325 MG TABLET PO SCH (09:29)
[2019-08-05] MEDS: MAGNESIUM CHLORIDE 64 MG TABLET PO SCH (09:29)
[2019-08-05] MEDS: MEMANTINE 5 MG TABLET PO SCH (09:29)
[2019-08-05] MEDS: CHOLECALCIFEROL 1,000 UNIT TABLET PO SCH (09:29)
[2019-08-05 12:10] VITALS: BP 146/76
== END 2019-08-05 14:56 | disposition swing bed (61) | DRG 643 ==
LOC: EDBD → EDUNIT# → N.ED 12:24 → N.EDINP 14:40 → SUATTDRO 14:40 → N.EDINP 15:51 → N.5E 16:36
PROVIDERS: ADMIT Hospitalist; ATTEND Internal Medicine

== ENCOUNTER 2019-08-20 23:33 | Inpatient (IN) ==
[2019-08-21] MEDS ORDERED: TISSUE ADHESIVE 1 EACH APPLICATOR TOP ONE (02:02)
[2019-08-21 10:28] LABS: Basophils % 0.6 % (0.0-0.8); Eosinophils # 0.1 10*3/uL (0.0-0.87); Eosinophils % 2.2 % (0.00-10.9); Hematocrit 31.6 VOL% (35.7-47.0); Hemoglobin 10.9 GM/DL (12.0-16.0); Immature Granulocytes % 0.6 %; Immature Granulocytes Absolute 0.03 #; Lymphocytes % 19.3 % (21.3-54.2); Mean Corpuscular HGB Conc 34.5 GM/DL (32-36); Mean Corpuscular Volume 82.1 FL (87-102); Mean Platelet Volume 9.5 FL (9.6-12.0); Monocytes % 12.4 % (1.7-12.7); Neutrophils % 64.9 % (38.7-73.9); Platelet Count 236 T/CUMM (130-400); Red Blood Count 3.85 MC/CUMM (3.8-5.5); Red Cell Distribution Width 13.8 % (9.3-17.3); White Blood Count 5.4 T/CUMM (4-12)
[2019-08-21 10:48] LABS: Albumin 3.2 G/DL (3.4-5.0); Bilirubin,Total 0.6 MG/DL (0.2-1.0); Calcium 8.3 MG/DL (8.5-10.1); Osmolality,Calculated 256.8 MOS/KG (273-304); Total Protein 6.4 G/DL (6.4-8.3)
[2019-08-21 11:47] LABS: Amorphous Crystals,Urine Few /HPF (Few); Apearance,Urine CLOUDY (Clear); Bacteria,Urine Few /HPF (Few); Bilirubin,Urine Negative (Negative); Blood, Urine Small mg/dL (Negative); Glucose,Urine (UA) Negative (Negative); Ketones,Urine 80 mg/dL (Negative); Mucus,Urine Few /LPF (Occasional); Nitrite,Urine Negative (Negative); Protein,Urine Negative; RBC,Urine 45 /HPF (0-4); Urine Color Yellow (Yellow); Urine Specific Gravity 1.016 (1.001-1.035); Urine Urobilinogen < 2.0 EU/DL (0.2-1.0); WBC,Urine 206 /HPF (0-6)
[2019-08-21] MEDS ORDERED: ORPHENADRINE 60 MG/2 ML VIAL IV STA (12:31)
[2019-08-21] MEDS ORDERED: AMPICILLIN/SULBACTAM 3,000 MG in SODIUM CHLORIDE 0.9% 100 ML IV STA (13:46)
[2019-08-21] MEDS ORDERED: ONDANSETRON 4 MG/2 ML VIAL IV PRN (15:18)
[2019-08-21] MEDS ORDERED: SODIUM CHLORIDE 0.9% 1,000 ML IV SCH (15:30)
[2019-08-21] MEDS ORDERED: hydrALAZINE 20 MG/1 ML VIAL IV PRN (15:38)
[2019-08-21] MEDS: POTASSIUM CHLORIDE INJ 10 MEQ in SODIUM CHLORIDE 0.9% 1,000 ML IV SCH (17:30)
[2019-08-21] MEDS ORDERED: POTASSIUM CHLORIDE 20 MEQ TABLET PO ONE (18:31)
[2019-08-21] MEDS: clonazePAM 0.5 MG TABLET PO PRN (22:23)
[2019-08-22] MEDS: clonazePAM 0.5 MG TABLET PO PRN ×3 (05:22→21:34)
[2019-08-22 06:36] LABS: Basophils % 0.5 % (0.0-0.8); Eosinophils # 0.1 10*3/uL (0.0-0.87); Hematocrit 32.5 VOL% (35.7-47.0); Immature Granulocytes % 0.5 %; Immature Granulocytes Absolute 0.03 #; Lymphocytes # 0.9 10*3/uL (1.4-4.0); Mean Corpuscular HGB Conc 33.8 GM/DL (32-36); Mean Corpuscular Volume 82.3 FL (87-102); Mean Platelet Volume 9.9 FL (9.6-12.0); Monocytes % 10.8 % (1.7-12.7); Neutrophils % 71.2 % (38.7-73.9); Platelet Count 248 T/CUMM (130-400); Red Blood Count 3.95 MC/CUMM (3.8-5.5); Red Cell Distribution Width 13.5 % (9.3-17.3); White Blood Count 5.9 T/CUMM (4-12)
[2019-08-22 07:10] LABS: Albumin 3.3 G/DL (3.4-5.0); Bilirubin,Total 0.6 MG/DL (0.2-1.0); Calcium 8.3 MG/DL (8.5-10.1); Osmolality,Calculated 270.8 MOS/KG (273-304); Total Protein 6.1 G/DL (6.4-8.3)
[2019-08-22] MEDS ORDERED: TUBERCULIN SKIN TEST 0.1 ML SYRINGE INTRADERM ONE (09:19)
[2019-08-22] MEDS: PANTOPRAZOLE 40 MG TABLET PO SCH (11:05)
[2019-08-22] MEDS: ACETAMINOPHEN 325 MG TABLET PO PRN ×3 (11:05→21:34)
[2019-08-22] MEDS: ENOXAPARIN 40 MG/0.4 ML SYRINGE SUBCUT SCH (11:07)
[2019-08-22] MEDS: cefTRIAXone 1,000 MG in SYRINGE 1 EACH IV SCH (11:08)
[2019-08-22] MEDS: POTASSIUM CHLORIDE INJ 10 MEQ in SODIUM CHLORIDE 0.9% 1,000 ML IV SCH ×2 (11:09→20:27)
[2019-08-23] MEDS: ACETAMINOPHEN 325 MG TABLET PO PRN ×4 (01:59→20:24)
[2019-08-23] MEDS: clonazePAM 0.5 MG TABLET PO PRN ×3 (04:07→23:56)
[2019-08-23 05:32] LABS: Basophils % 0.5 % (0.0-0.8); Eosinophils # 0.1 10*3/uL (0.0-0.87); Eosinophils % 2.4 % (0.00-10.9); Hematocrit 28.8 VOL% (35.7-47.0); Immature Granulocytes % 0.5 %; Immature Granulocytes Absolute 0.02 #; Lymphocytes % 27.1 % (21.3-54.2); Mean Corpuscular HGB Conc 34.7 GM/DL (32-36); Mean Corpuscular Volume 81.1 FL (87-102); Mean Platelet Volume 10.4 FL (9.6-12.0); Neutrophils % 58.5 % (38.7-73.9); Platelet Count 224 T/CUMM (130-400); Red Blood Count 3.55 MC/CUMM (3.8-5.5); Red Cell Distribution Width 13.4 % (9.3-17.3); White Blood Count 3.7 T/CUMM (4-12)
[2019-08-23 05:45] LABS: Albumin 2.8 G/DL (3.4-5.0); Bilirubin,Total 0.9 MG/DL (0.2-1.0); Calcium 7.6 MG/DL (8.5-10.1); Osmolality,Calculated 267.2 MOS/KG (273-304); Total Protein 5.6 G/DL (6.4-8.3)
[2019-08-23] MEDS ORDERED: POTASSIUM CHLORIDE 20 MEQ TABLET PO ONE (06:47)
[2019-08-23] MEDS: PANTOPRAZOLE 40 MG TABLET PO SCH (08:13)
[2019-08-23] MEDS: ENOXAPARIN 40 MG/0.4 ML SYRINGE SUBCUT SCH (08:16)
[2019-08-23] MEDS: cefTRIAXone 1,000 MG in SYRINGE 1 EACH IV SCH (08:18)
[2019-08-23] MEDS: SODIUM CHLOR 0.9% KCL 20 MEQ 20 MEQ/1,000 ML BAG IV SCH (09:07)
[2019-08-23] MEDS ORDERED: MAGNESIUM SULF RIDER 4 GM in PREMIX 1 EACH IV PRN (11:27)
[2019-08-23] MEDS ORDERED: MAGNESIUM SULF RIDER 2 GM in PREMIX 1 EACH IV PRN (11:27)
[2019-08-23] MEDS: POTASSIUM CHLORIDE 20 MEQ TABLET PO PRN ×3 (11:59→17:30)
[2019-08-23] MEDS: traMADol 50 MG TABLET PO PRN (17:25)
[2019-08-24] MEDS: SODIUM CHLOR 0.9% KCL 20 MEQ 20 MEQ/1,000 ML BAG IV SCH ×2 (01:21→16:24)
[2019-08-24] MEDS: traMADol 50 MG TABLET PO PRN ×2 (03:11→20:26)
[2019-08-24 05:11] LABS: Basophils % 0.6 % (0.0-0.8); Eosinophils # 0.1 10*3/uL (0.0-0.87); Hemoglobin 9.1 GM/DL (12.0-16.0); Immature Granulocytes % 0.6 %; Immature Granulocytes Absolute 0.02 #; Lymphocytes # 1.1 10*3/uL (1.4-4.0); Lymphocytes % 33.1 % (21.3-54.2); Mean Corpuscular HGB Conc 33.7 GM/DL (32-36); Mean Corpuscular Volume 82.6 FL (87-102); Mean Platelet Volume 10.3 FL (9.6-12.0); Monocytes % 9.3 % (1.7-12.7); Neutrophils % 53.4 % (38.7-73.9); Platelet Count 214 T/CUMM (130-400); Red Blood Count 3.27 MC/CUMM (3.8-5.5); Red Cell Distribution Width 13.3 % (9.3-17.3); White Blood Count 3.4 T/CUMM (4-12)
[2019-08-24 05:37] LABS: Blood Urea Nitrogen 5 MG/DL (7-18); Calcium 6.5 MG/DL (8.5-10.1); Estimated Glom Filtration Rate 88 ML/MIN; Glucose 62 MG/DL (74-106); Osmolality,Calculated 273.4 MOS/KG (273-304)
[2019-08-24] MEDS: ACETAMINOPHEN 325 MG TABLET PO PRN (08:13)
[2019-08-24] MEDS: cefTRIAXone 1,000 MG in SYRINGE 1 EACH IV SCH (08:14)
[2019-08-24] MEDS: PANTOPRAZOLE 40 MG TABLET PO SCH (08:14)
[2019-08-24] MEDS: clonazePAM 0.5 MG TABLET PO PRN ×3 (08:14→20:26)
[2019-08-24] MEDS: ENOXAPARIN 40 MG/0.4 ML SYRINGE SUBCUT SCH (08:14)
[2019-08-25] MEDS: SODIUM CHLOR 0.9% KCL 20 MEQ 20 MEQ/1,000 ML BAG IV SCH ×3 (00:03→18:11)
[2019-08-25] MEDS: ACETAMINOPHEN 325 MG TABLET PO PRN (03:06)
[2019-08-25] MEDS: clonazePAM 0.5 MG TABLET PO PRN ×2 (04:26→16:06)
[2019-08-25 04:51] LABS: Basophils % 0.4 % (0.0-0.8); Eosinophils # 0.1 10*3/uL (0.0-0.87); Eosinophils % 2.7 % (0.00-10.9); Hematocrit 31.5 VOL% (35.7-47.0); Hemoglobin 10.6 GM/DL (12.0-16.0); Immature Granulocytes % 0.4 %; Immature Granulocytes Absolute 0.02 #; Lymphocytes # 1.2 10*3/uL (1.4-4.0); Lymphocytes % 25.5 % (21.3-54.2); Mean Corpuscular HGB Conc 33.7 GM/DL (32-36); Mean Platelet Volume 10.6 FL (9.6-12.0); Monocytes % 12.1 % (1.7-12.7); Neutrophils % 58.9 % (38.7-73.9); Platelet Count 242 T/CUMM (130-400); Red Blood Count 3.84 MC/CUMM (3.8-5.5); Red Cell Distribution Width 13.6 % (9.3-17.3); White Blood Count 4.8 T/CUMM (4-12)
[2019-08-25] MEDS: ENOXAPARIN 40 MG/0.4 ML SYRINGE SUBCUT SCH (08:52)
[2019-08-25] MEDS: cefTRIAXone 1,000 MG in SYRINGE 1 EACH IV SCH (08:53)
[2019-08-25] MEDS: PANTOPRAZOLE 40 MG TABLET PO SCH (08:53)
[2019-08-25] MEDS ORDERED: ZIPRASIDONE 20 MG/1 ML VIAL IM ONE (10:18)
[2019-08-25] MEDS ORDERED: LORazepam 2 MG/1 ML VIAL IV ONE (10:55)
[2019-08-25] MEDS ORDERED: clonazePAM 0.5 MG TABLET PO PRN (11:01)
[2019-08-25] MEDS ORDERED: METHOCARBAMOL 500 MG TABLET PO PRN (11:01)
[2019-08-25] MEDS: SERTRALINE 100 MG TABLET PO SCH (12:11)
[2019-08-25] MEDS: MEMANTINE 5 MG TABLET PO SCH ×2 (12:12→21:44)
[2019-08-25] MEDS: CHOLECALCIFEROL 1,000 UNIT TABLET PO SCH (16:06)
[2019-08-25] MEDS: hydrALAZINE 25 MG TABLET PO SCH ×2 (16:06→21:43)
[2019-08-25] MEDS: QUEtiapine 25 MG TABLET PO SCH ×2 (16:07→21:43)
[2019-08-25] MEDS: POTASSIUM CHLORIDE 10 MEQ TABLET PO SCH ×2 (18:11→21:43)
[2019-08-25] MEDS: PROPRANOLOL 20 MG TABLET PO SCH ×2 (18:20→21:44)
[2019-08-25] MEDS: HALOPERIDOL 5 MG/ML AMP IM PRN (20:20)
[2019-08-25] MEDS ORDERED: DONEPEZIL 10 MG TABLET PO SCH (21:00)
[2019-08-26] MEDS: HALOPERIDOL 5 MG/ML AMP IM PRN (02:22)
[2019-08-26] MEDS ORDERED: HALOPERIDOL 5 MG/ML AMP IM ONE (02:55)
[2019-08-26 05:14] LABS: Calcium 8.4 MG/DL (8.5-10.1); Osmolality,Calculated 267.1 MOS/KG (273-304)
[2019-08-26] MEDS ORDERED: LEVOTHYROXINE 75 MCG TABLET PO SCH (06:30)
[2019-08-26] MEDS: POTASSIUM CHLORIDE 10 MEQ TABLET PO SCH (09:16)
[2019-08-26] MEDS: cefTRIAXone 1,000 MG in SYRINGE 1 EACH IV SCH (09:16)
[2019-08-26] MEDS: ENOXAPARIN 40 MG/0.4 ML SYRINGE SUBCUT SCH ×2 (09:16→10:10)
[2019-08-26] MEDS: hydrALAZINE 25 MG TABLET PO SCH (09:17)
[2019-08-26] MEDS: SERTRALINE 100 MG TABLET PO SCH (09:17)
[2019-08-26] MEDS: QUEtiapine 25 MG TABLET PO SCH (09:17)
[2019-08-26] MEDS: CHOLECALCIFEROL 1,000 UNIT TABLET PO SCH (09:17)
[2019-08-26] MEDS: PROPRANOLOL 20 MG TABLET PO SCH (09:18)
[2019-08-26] MEDS: PANTOPRAZOLE 40 MG TABLET PO SCH (09:18)
[2019-08-26] MEDS: MEMANTINE 5 MG TABLET PO SCH (09:18)
[2019-08-26] MEDS ORDERED: POTASSIUM CHLORIDE 20 MEQ TABLET PO ONE (09:35)
[2019-08-26 11:04] VITALS: BP 166/75
== END 2019-08-26 12:50 | DRG 689 ==
LOC: EDUNIT# → EDBD → N.4E 23:33 → N.EDINP 23:33 → N.ED 23:33 → N.EDINP 08-21 15:09 → INTOOBSV 08-21 15:09 → N.4E 08-21 15:55 → SUATTDRO 08-22 13:32
PROVIDERS: ADMIT Internal Medicine; ATTEND Internal Medicine